=== PATIENT | female | born 1965 | race Hispanic/Latino ===

== ENCOUNTER 2018-12-16 18:29 | Emergency (ER) | payer MEDICAID, OTHER ==
[2018-12-16] MEDS ORDERED: KETOROLAC TROMETHAMINE 60 MG/2 ML VIAL ONE (18:51)
== END 2018-12-16 19:24 | disposition home or self-care (01) ==
LOC: EDH 18:29
DX: S46.812A Strain of other muscles, fascia and tendons at shoulder and upper arm level, left arm, initial encounter (principal); Z85.3 Personal history of malignant neoplasm of breast; Z85.850 Personal history of malignant neoplasm of thyroid; Z90.10 Acquired absence of unspecified breast and nipple; V49.00XA Driver injured in collision with unspecified motor vehicles in nontraffic accident, initial encounter; Y93.89 Activity, other specified; Y92.89 Other specified places as the place of occurrence of the external cause; Y99.8 Other external cause status
CPT/HCPCS: 73030; 96372; 99284; J1885

== ENCOUNTER 2023-04-22 09:03 | Emergency (ER) | payer BC, OTHER ==
[~2023-04-22] VITALS: Ht 172.7 cm; Wt 72.6 kg
[2023-04-22 09:31] LABS: BASOPHILS # (AUTO) 0.05 K/uL (0.00-0.20); BASOPHILS % (AUTO) 0.7 % (0.0-5.0); EOSINOPHILS # (AUTO) 0.01 K/uL (0.00-0.70); EOSINOPHILS % (AUTO) 0.1 % (0.0-8.0); HEMATOCRIT 39.3 % (36-48); IMMATURE GRANULOCYTE ABSOLUTE 0.04 K/uL (0-1); LYMPHOCYTES # (AUTO) 1.2 K/uL (1.0-4.8); LYMPHOCYTES % (AUTO) 15.9 % (21.0-51.0); MEAN CORPUSCULAR HEMOGLOBIN 31.2 pg (27.0-33.0); MEAN CORPUSCULAR HGB CONC 33.1 g/dL (32.0-36.0); MEAN CORPUSCULAR VOLUME 94.2 fL (79-99); MONOCYTES # (AUTO) 0.4 K/uL (0.1-1.0); MONOCYTES % (AUTO) 5.6 % (3.0-13.0); NEUTROPHILS # (AUTO) 5.8 K/uL (1.8-7.7); NEUTROPHILS % (AUTO) 77.2 % (40.0-77.0); PLATELET COUNT (AUTO) 271 K/uL (130-400); RED BLOOD CELL COUNT(AUTO) 4.17 MIL/uL (4.00-5.50); WHITE BLOOD COUNT (AUTO) 7.6 K/uL (4.8-10.8)
[2023-04-22 09:33] LABS: ADD UA MICROSCOPIC YES; APPEARANCE,URINE CLEAR (CLEAR); BILIRUBIN,URINE NEGATIVE (NEGATIVE); COLOR,URINE LIGHT-YELLOW (YELLOW); GLUCOSE, URINE (UA) NEGATIVE (NEGATIVE); KETONES,URINE NEGATIVE (NEGATIVE); LEUKOCYTE ESTERASE ,URINE 250 Leu/uL (NEGATIVE); NITRATE,URINE NEGATIVE (NEGATIVE); OCCULT BLOOD,URINE NEGATIVE (NEGATIVE); PROTEIN,URINE NEGATIVE (NEGATIVE); UROBILINOGEN,URINE 0.2 mg/dL (0.2-1.0)
[2023-04-22 09:35] LABS: BACTERIA,URINE FEW /HPF (None Seen); RBC,URINE 0-1 /HPF (0-1); SQUAMOUS EPITHELIAL CELL,UR RARE /HPF (0-2); WBC,URINE 26-50 /HPF (0-1)
[2023-04-22 09:42] LABS: CREATININE 0.8 mg/dL (0.5-1.5); POTASSIUM 3.7 mmol/L (3.5-5.1)
[2023-04-22 09:43] LABS: AMPHET/METH SCREEN,URINE NEGATIVE (NEGATIVE); BARBITURATE SCREEN, URINE NEGATIVE (NEGATIVE); BENZODIAZEPINES SCREEN,URINE NEGATIVE (NEGATIVE); CANNABINOID SCREEN,URINE NEGATIVE (NEGATIVE); COCAINE SCREEN,URINE NEGATIVE (NEGATIVE); OPIATE SCREEN,URINE NEGATIVE (NEGATIVE); PHENCYCLIDINE SCREEN,URINE NEGATIVE (NEGATIVE)
[2023-04-22 09:46] LABS: BILIRUBIN,TOTAL 0.3 mg/dL (0.2-1.0); TOTAL PROTEIN, SERUM 8.4 g/dL (6.0-8.3)
[2023-04-22] MEDS ORDERED: NITR100C PO (10:21)
[2023-04-22 10:24] VITALS: BP 139/74; PULSE 87; RESP 16; O2SAT 98
[2023-04-22] MEDS ORDERED: CEFTRIAXONE 1G VIAL IVPB ONE (10:30)
== END 2023-04-22 11:03 | disposition home or self-care (01) ==
LOC: EDH 09:03
DX: N39.0 Urinary tract infection, site not specified (principal); F41.9 Anxiety disorder, unspecified; E03.9 Hypothyroidism, unspecified; E78.00 Pure hypercholesterolemia, unspecified; Z98.890 Other specified postprocedural states
CPT/HCPCS: 99284; 96365; 84443; 84484; 80053; 80305; 83690; 85025; 87077; 87088; 87186; 36415; 93005; 81001; J0696

== ENCOUNTER 2024-08-22 19:43 | Emergency (ER) | payer BC ==
[~2024-08-22] VITALS: Ht 154.9 cm; Wt 79.8 kg
[~2024-08-22 19:43] MED LIST: NITR100C PO
--- NOTE | 2024-08-22 20:07 | NUR ---
SEPSIS ALERT CALLED TERRELL KENT WITH TEMP OF 101.0, PULSE 117
[2024-08-22 20:23] LABS: BASOPHILS # (AUTO) 0.06 K/uL (0.00-0.20); BASOPHILS % (AUTO) 0.6 % (0.0-5.0); EOSINOPHILS # (AUTO) 0.01 K/uL (0.00-0.70); EOSINOPHILS % (AUTO) 0.1 % (0.0-8.0); IMMATURE GRANULOCYTE ABSOLUTE 0.03 K/uL (0-1); LYMPHOCYTES # (AUTO) 1.4 K/uL (1.0-4.8); LYMPHOCYTES % (AUTO) 14.7 % (21.0-51.0); MEAN CORPUSCULAR HEMOGLOBIN 30.8 pg (27.0-33.0); MEAN CORPUSCULAR HGB CONC 33.3 g/dL (32.0-36.0); MEAN CORPUSCULAR VOLUME 92.5 fL (79-99); MONOCYTES # (AUTO) 0.8 K/uL (0.1-1.0); NEUTROPHILS # (AUTO) 7.4 K/uL (1.8-7.7); NEUTROPHILS % (AUTO) 76.3 % (40.0-77.0); PLATELET COUNT (AUTO) 235 K/uL (130-400); RED BLOOD CELL COUNT(AUTO) 3.89 MIL/uL (4.00-5.50); RED CELL DISTRIBUTION WIDTH 14.6 % (11.0-15.5); WHITE BLOOD COUNT (AUTO) 9.7 K/uL (4.8-10.8)
[2024-08-22] MEDS: 0.9%NACL 1000ML 1,000 ML IV ONE (20:24)
[2024-08-22] MEDS: ondanSETRON 4MG INJ IVP ONE (20:24)
[2024-08-22] MEDS: acetaMINOPHEN 500 MG TABLET PO ONE (20:24)
--- NOTE | 2024-08-22 20:26 | ERN ---
General Chief Complaint: Abdominal Pain Stated Complaint: C/O LOWER ABD PAIN WITH LOWER BACK PAIN Time Seen by MD: 19:46 Source: patient History of Present Illness Initial Comments Patient is a 58-year-old female with a past medical history of hypothyroidism, hypercholesterolemia, and recurrent urinary tract infections, who presented to the emergency room with a 3 day history of bilateral pelvic pain. Patient describes the pain as sharp in nature, continuous in frequency, an 8/10 and radiating to her back and her legs. There is associated nausea, fever, chills. Denies any vomiting, chest pain, shortness of breath, palpitations. Patient also complains of pain when she voids, rates the pain as a 4/10. There is associated frequency and urgency. Allergies: Coded Allergies: No Known Drug Allergies (Unverified Allergy, Unknown, 12/16/18) Home Meds Active Scripts Amoxicillin/Potassium Clav (Augmentin 500-125 Tablet) 500 Mg-125 Mg Tablet, 1 TAB PO BID for 7 Days, #14 TAB 0 Refills Prov:DAMARIS PULIDO MD 08/22/24 Nitrofurantoin Macrocrystal (Nitrofurantoin) 100 Mg Capsule, 100 MG PO BID for 7 Days, #14 CAP 0 Refills Prov:MELISA HENDRICKSON NP 04/22/23 Past Medical History Past Medical History: Hypothyroid Past Surgical History: Other, Surgical History Other: RT BREAST MASTECTOMY ROS Dictation Constitutional: No appetite loss, No fevers, chills , No night sweats, No weakness, fatigue Eye: No vision change, No redness, pain or discharge ENT: No hearing loss, ear pain or discharge, No nose bleeds, No sore throat, Neck: No swelling. pain or stiffness Respiratory: No cough, shortness of breath, wheezing Cardiovascular: No chest pain,, palpitations, dyspnea, No edema Gastrointestinal: No abdominal pain, nausea, vomiting, No diarrhea, constipation Genitourinary: painful urination, frequency or urgency, Bilateral pelvic pain Musculoskeletal: No joint pain, muscle pain, swelling or stiffness Neurological: No numbness, tingling, No weakness, tremors or seizures Psychiatric: : No depression, No anxiety, No sleep disturbance, No Memory changes Lymphatic: No easy bruising, No bleeding tendencies , No swollen lymph nodes A 13-point Review of Systems was assessed, all of which are negative except for HPI or as indicated above. Physical Exam Physical Exam Dictation General: Alert & Oriented, No acute distress. EENT: No conjunctival redness or discharge noted Tympanic membranes are clear, Normal hearing, Oral mucosa is moist, No pharyngeal erythema, No nasal discharge, No oral lesions. Neck: Non-tender, No jugular vein distention, No lymphadenopathy, No thyromegaly, Supple. Respiratory: Lungs are clear to auscultation, Respirations are non-labored, Breath sounds are equal, No chest wall tenderness, _. Cardiovascular: Normal rate, Normal rhythm, No murmur, Good pulses equal in all extremities, Normal peripheral perfusion, No edema. Gastrointestinal: Soft, Non-tender, Non-distended, Normal bowel sounds, No organomegaly, _. Musculoskeletal: Normal range of motion, Normal strength, No tenderness, No swelling, No deformity, Normal gait. Integumentary: Warm, Dry, [place], Intact, No pallor, No rash. Neurologic: Alert, Oriented x4, Normal sensory, No focal defects Psychiatric: Cooperative, Appropriate mood & affect, Normal judgement, Non- suicidal. Results Laboratory and Microbiology Lab and Micro Result Laboratory Tests Test 08/22/24 19:50 08/22/24 19:58 08/22/24 20:10 Influenza Type A Antigen Negative For Type A Influenza Type B Antigen Negative For Type B SARS-CoV-2, RNA, NAAT NEGATIVE SARS CoV-2 Urine Color COLORLESS (YELLOW) Urine Appearance CLEAR (CLEAR) Urine pH 5.0 (5.0-8.0) Urine Specific [place] 1.007 (1.001-1.031) Urine Protein NEGATIVE mg/dL (NEGATIVE) Urine Glucose (UA) NEGATIVE mg/dL (NEGATIVE) Urine Ketones NEGATIVE mg/dL (NEGATIVE) Urine Occult Blood NEGATIVE (NEGATIVE) Urine Nitrate NEGATIVE (NEGATIVE) Urine Bilirubin NEGATIVE mg/dL (NEGATIVE) Urine Urobilinogen 0.2 mg/dL (0.2-1.0) Urine Leukocyte Esterase NEGATIVE Seth/uL Urine RBC None /HPF (0-1) Urine WBC 0-1 /HPF (0-1) Urine Bacteria None /HPF (None Seen) White Blood Count 9.7 K/uL (4.8-10.8) Red Blood Count 3.89 MIL/uL (4.00-5.50) L Hemoglobin 12.0 g/dL (12.0-16.0) Hematocrit 36.0 % (36-48) Mean Corpuscular Volume 92.5 fL (79-99) Mean Corpuscular Hemoglobin 30.8 pg (27.0-33.0) Mean Corpuscular Hemoglobin Concent 33.3 g/dL (32.0-36.0) Red Cell Distribution Width 14.6 % (11.0-15.5) Platelet Count 235 K/uL (130-400) Mean Platelet Volume 10.0 fL (7.5-10.5) Immature Granulocyte % (Auto) 0.3 % (0-1) Neutrophils (%) (Auto) 76.3 % (40.0-77.0) Lymphocytes (%) (Auto) 14.7 % (21.0-51.0) L Monocytes (%) (Auto) 8.0 % (3.0-13.0) Eosinophils (%) (Auto) 0.1 % (0.0-8.0) Basophils (%) (Auto) 0.6 % (0.0-5.0) Neutrophils # (Auto) 7.4 K/uL (1.8-7.7) Lymphocytes # (Auto) 1.4 K/uL (1.0-4.8) Monocytes # (Auto) 0.8 K/uL (0.1-1.0) Eosinophils # (Auto) 0.01 K/uL (0.00-0.70) Basophils # (Auto) 0.06 K/uL (0.00-0.20) Absolute Immature Granulocyte (auto 0.03 K/uL (0-1) Nucleated Red Blood Cells 0.0 % (0.0-0.19) Sodium Level 134 mmol/L (136-145) L Potassium Level 4.0 mmol/L (3.5-5.1) Chloride Level 99 mmol/L (101-111) L Carbon Dioxide Level 30 mmol/L (21-32) Blood Urea Nitrogen 12 mg/dL (7-18) Creatinine 0.8 mg/dL (0.5-1.0) Glomerular Filtration Rate Calc 85 mL/min (>90) Random Glucose 91 mg/dL (70-105) Lactic Acid Level 1.3 mmol/L (0.8-2.5) Total Calcium 9.2 mg/dL (8.5-10.1) Total Bilirubin 0.2 mg/dL (0.2-1.0) Aspartate Amino Transf (AST/SGOT) 32 U/L (10-37) Alanine Aminotransferase (ALT/SGPT) 41 U/L (12-78) Alkaline Phosphatase 86 U/L (50-136) Total Creatine Kinase 151 U/L (21-232) Troponin I High Sensitivity < 4.0 ng/L (4-50) L Total Protein 8.0 g/dL (6.0-8.3) Albumin 3.7 g/dL (3.5-5.0) Lipase 57 U/L (16-77) MDM Potential differential diagnoses include: * Urinary tract infection Assessment: CBC was done in order to to rule any anemia, infections and to evaluate the overall health of the patient, CMP was ordered in order to assess. various electrolytes, kidney function, liver function ,protein levels and blood glucose levels, Urinalysis to rule out any urinary tract infection.Lipase in order to assess pancreatic function, ketorolac 30 mg IV for adequate pain management, Zofran 4 mg IV for nausea and vomiting. Patient had elevated temperature at 100.9 and pulse at 117 and so meets the criteria for sepsis. Ordered lactic acid, blood cultures and 1 L of NS for adequate hydration. I will re-evaluate the patient after treatment and diagnostic exams have returned to determine whether they require further testing, can be safely discharged home, or need admission for further treatment and evaluation. Given the social determinants of health affecting care, including literacy, access to medical care, prescription drug management, and radx-voj-pewgmnn drugs, I will ensure that treatment plans are tailored accordingly. Revaluation : Patient is alert and oriented. States she feels a lot better . Lab results are unremarkable. Disposition: Will discharge patient at this time with prescription of Augmentin PO for a urinary tract infection and instructions to follow up with PCP for further evaluation and treatment. Attestation: Patient's case was discussed with the ER MD. Reviewed the documentation, medical decision making and treatment plan. Agrees with the findings and plan of care. ED Course Orders Procedure Category Date Status Time Cbc With Differential LAB 08/22/24 Complete 19:48 Iv Insertion CPOE 08/22/24 Transmitted 20:02 Pulse Ox(Continuous) RT 08/22/24 Transmitted 20:02 Vital Signs Per CPOE 08/22/24 Transmitted Routine 20:02 12 Lead Ekg Tracing- EKG 08/22/24 Logged Technical 20:02 Blood Cult SUZI 08/22/24 In Process 20:02 Urinalysis Profile LAB 08/22/24 Complete 20:02 Culture Urine SUZI 08/22/24 In Process 20:02 Lactic Acid LAB 08/22/24 Complete 20:02 Covid Rna Naat LAB 08/22/24 Complete 20:04 Influenza Type A & B, LAB 08/22/24 Complete Rapid 20:04 Ct Abdomen/Pelvis W/O CT 08/22/24 Resulted Contrast 20:00 0.9%Nacl 1000ml (Ns PHA 08/22/24 Complete 1000ml) 20:00 Ondansetron 4mg Inj PHA 08/22/24 Complete (Zofran 4mg Inj) 20:00 Acetaminophen 500mg PHA 08/22/24 Complete Tab (Tylenol 500mg T 20:22 Cardiac Panel LAB 08/22/24 Complete 20:10 Comprehensive LAB 08/22/24 Complete Metabolic Panel 20:10 Lipase LAB 08/22/24 Complete 20:10 Acetaminophen 500mg PHA 08/22/24 Complete Tab (Tylenol 500mg T 21:00 Ceftriaxone 1g Vial PHA 08/22/24 Complete (Rocephine 1g Inj) 21:00 Current Medications Medications (Trade) Dose Ordered Sig/Fernando Route PRN Reason Start Time Stop Time Status Last Admin Dose Admin Acetaminophen (TYLenol 500MG TAB) 500 mg STK-MED ONCE .ROUTE 08/22/24 20:22 08/22/24 20:22 DC Acetaminophen (TYLenol 500MG TAB) 1,000 mg ONCE ONCE PO 08/22/24 21:00 08/22/24 21:01 DC 08/22/24 20:24 Ceftriaxone Sodium (ROCEphine 1G INJ) 1 gm ONCE ONCE IVPB 08/22/24 21:00 08/22/24 21:02 DC 08/22/24 21:10 Ondansetron HCl (zoFRAN 4MG INJ) 4 mg ONCE ONCE IVP 08/22/24 20:00 08/22/24 20:08 DC 08/22/24 20:24 Sodium Chloride 1,000 ml @ 0 mls/hr ONCE ONCE IV 08/22/24 20:00 08/22/24 20:08 DC 08/22/24 20:24 Vital Signs Date Time Temp Pulse Resp B/P (MAP) Pulse Ox O2 Delivery O2 Flow Rate FiO2 08/22/24 22:19 99.0 96 18 142/70 98 Room Air* 0 21 08/22/24 21:18 100.6 105 18 150/72 98 Room Air* 0 21 08/22/24 20:24 101.7 08/22/24 20:18 101.7 110 18 154/77 96 Room Air* 0 21 08/22/24 19:47 100.9 117 20 166/99 97 Room Air HEART Score Response (Comments) Value History: Low suspicion (0) 0 EKG: Normal 0 Age: 45-65yrs (+1) 1 Risk Factors: No known risk factors (0) 0 Initial Troponin: Normal limit (0) 0 HEART Score Risk: Low Risk for MACE (1-3) Total 1 DX & DISP Disposition: Discharge Departure Impression: Primary Impression: UTI (urinary tract infection) Condition: Stable Scripts Amoxicillin/Potassium Clav (Augmentin 500-125 Tablet) 500 Mg-125 Mg Tablet 1 TAB PO BID for 7 Days, #14 TAB 0 Refills Prov: DAMARIS PULIDO MD 08/22/24 Additional Instructions: Discharge Instructions: *Follow up with your primary care physician in 2 - 3 days after discharge. *Continue all medications as prescribed. Do not discontinue or change dosages without consulting your PCP. *Gradually resume normal activities as tolerated. *Continue a balanced diet . Reduce salt intake to help manage BP. *Seek immediate medical attention if you experience chest pain, SOB or severe headache. *Smoking cessation is strongly advised. Resources for quitting smoking are available upon request. Referrals: SELF,REFERRAL (PCP) I performed a substantive portion of the visit. I have reviewed and personally made and approve the management plan that is documented in the notes by myself with RONEY/resident. I acknowledged full responsibility for the patient's management plan. DAMARIS PULIDO MD Aug 22, 2024 20:26 ARIEL VEE DO Aug 23, 2024 00:39
[2024-08-22 20:30] LABS: SARS-CoV-2, RNA, NAAT NEGATIVE SARS CoV-2 (NEGATIVE)
[2024-08-22 20:33] LABS: APPEARANCE,URINE CLEAR (CLEAR); BILIRUBIN,URINE NEGATIVE (NEGATIVE); COLOR,URINE COLORLESS (YELLOW); GLUCOSE, URINE (UA) NEGATIVE (NEGATIVE); KETONES,URINE NEGATIVE (NEGATIVE); LEUKOCYTE ESTERASE ,URINE NEGATIVE Leu/uL (NEGATIVE); NITRATE,URINE NEGATIVE (NEGATIVE); OCCULT BLOOD,URINE NEGATIVE (NEGATIVE); PROTEIN,URINE NEGATIVE (NEGATIVE); UROBILINOGEN,URINE 0.2 mg/dL (0.2-1.0)
[2024-08-22 20:34] LABS: INFLUENZA TYPE A Negative For Type A (NEGATIVE); INFLUENZA TYPE B Negative For Type B (NEGATIVE)
[2024-08-22 20:34] LABS: ADD UA MICROSCOPIC YES
[2024-08-22 20:35] LABS: WBC,URINE 0-1 /HPF (0-1)
[2024-08-22 20:43] LABS: CARBON DIOXIDE 30 mmol/L (21-32); CHLORIDE 99 mmol/L (101-111); CREATININE 0.8 mg/dL (0.5-1.0); GLOMERULAR FILTR. RATE CALC 85 mL/min (>90); GLUCOSE,RANDOM 91 mg/dL (70-105); SODIUM SERUM 134 mmol/L (136-145); UREA NITROGEN, BLOOD 12 mg/dL (7-18)
--- NOTE | 2024-08-22 20:45 | HMCIMG ---
CT ABDOMEN WITHOUT CONTRAST. CT PELVIS WITHOUT CONTRAST. INDICATION: Bilateral pelvic pain. TECHNIQUE: Routine transaxial imaging using 5 mm slice thickness through the abdomen and pelvis without the administration of IV contrast. Thin slice reconstructions are also provided. Coronal and sagittal reformatted images acquired for interpretation. CT was performed with one or more of the following dose reduction techniques: Automated exposure control, adjustment of the mA and/or kV according to patient size, or use of iterative reconstruction technique. COMPARISON: None FINDINGS: ON NONCONTRAST IMAGING: ABDOMEN: Heart size is normal. Visible lung bases are clear. No abnormal renal calcifications, hydronephrosis, perinephric inflammation, or proximal hydroureter detected. Subcentimeter simple cyst along the lower pole of the left kidney. The liver is normal in size and smooth in contour without biliary duct dilation. The spleen is normal in size and attenuation. The gallbladder appears normal. The pancreas appears normal without pancreatic duct dilation. The adrenal glands appear normal. No significant abdominal, retrocrural or retroperitoneal adenopathy noted. No evidence for intra-abdominal free air or organized fluid collection. Mild calcific plaque is noted along the abdominal aortic and iliac vessel rogers without aneurysmal dilation. PELVIS: Very small fat-containing nonobstructing bilateral inguinal hernias. No abnormal calcifications within the urinary bladder or distal ureters. No evidence for free air or organized pelvic fluid collection. No significant pelvic adenopathy detected. Moderate stool burden. Terminal ileum appears unremarkable. The retrocecal appendix appears normal. Visible osseous structures are intact. IMPRESSION: Very small fat-containing nonobstructing bilateral inguinal hernias. Moderate constipation.
[2024-08-22 20:49] LABS: ALANINE AMINOTRANSFERASE 41 U/L (12-78); ALBUMIN 3.7 g/dL (3.5-5.0); ASPARTATE AMINOTRANSFERASE 32 U/L (10-37); BILIRUBIN,TOTAL 0.2 mg/dL (0.2-1.0); CREATINE KINASE, TOTAL 151 U/L (21-232)
[2024-08-22] MEDS: cefTRIAXone 1G VIAL IVPB ONE (21:10)
[2024-08-22] MEDS: acetaMINOPHEN 500 MG TABLET ONE (21:12)
[2024-08-22 21:18] VITALS: TEMP 100.4
[2024-08-22] MEDS ORDERED: AMOX-426 PO (21:39)
[2024-08-22 22:19] VITALS: BP 142/70; PULSE 96; RESP 18; TEMP 98.9; O2SAT 98
--- NOTE | 2024-08-23 07:01 | EKG ---
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
== END 2024-08-22 22:21 | disposition home or self-care (01) ==
LOC: EDH 19:43
DX: N39.0 Urinary tract infection, site not specified (principal); E03.9 Hypothyroidism, unspecified; E78.00 Pure hypercholesterolemia, unspecified; Z79.899 Other long term (current) drug therapy; Z20.822 Contact with and (suspected) exposure to COVID-19
CPT/HCPCS: 99284; 74176; 96365; 87635; 96361; 96375; 82550; 84484; 80053; 83690; 85025; 87040 ×2; 87086; 87804 ×2; 83605; 81001; 36415; 93005; J7030; J0696; J2405

== ENCOUNTER → 2025-04-10 | Outpatient (CLI) | payer OTHER ==
[~2025-04-10] MED LIST changes: +AMOX-426 PO
--- NOTE | 2025-04-11 07:09 | HMCIMG ---
EXAM: CR Lumbar Spine, 3 views. CLINICAL HISTORY: Pain. COMPARISON: None provided. FINDINGS: Straightening of lumbar spine is noted. Osteophytic lipping of articular margin is noted. L5-S1 intervertebral disc space is reduced. Atherosclerotic aortic calcification is noted. Normal vertebral body heights. No acute fracture. Soft tissues are within normal limits. IMPRESSION: Straightening of lumbar spine is noted. Osteophytic lipping of articular margin is noted. L5-S1 intervertebral disc space is reduced. No acute fracture or dislocation. /[place]
--- NOTE | 2025-04-11 07:10 | HMCIMG ---
EXAM: CR Pelvis and Left Hip, 3 views. CLINICAL HISTORY: Pain. COMPARISON: None provided. FINDINGS: No acute fracture or aggressive appearing osseous lesion. Joint spaces are within normal limits. The soft tissues are unremarkable. IMPRESSION: 1. No acute osseous abnormality. /[place]
== END | disposition home or self-care (01) ==
LOC: RAH 15:26
PROVIDERS: ATTEND Internal Medicine
DX: M51.370 Other intervertebral disc degeneration, lumbosacral region with discogenic back pain only (principal); I70.0 Atherosclerosis of aorta; M25.78 Osteophyte, vertebrae; M25.552 Pain in left hip
CPT/HCPCS: 72100; 73502